=== PATIENT | male | born 1990 | race Hispanic/Latino ===

== ENCOUNTER 2018-07-21 02:13 | Emergency (ER) | payer SELFPAY ==
[2018-07-21] MEDS ORDERED: Fluorescein Opthalmic Strip ONE (03:29)
[2018-07-21] MEDS ORDERED: Proparacaine 0.5% Opth 15 ML BOT ONE (03:30)
[2018-07-21] MEDS ORDERED: traMADol HCl 50 MG TAB ONE (04:15)
[2018-07-21] MEDS ORDERED: Erythromycin Base 0.5% Oint 1 GM TUBE ONE (04:16)
== END 2018-07-21 04:37 | disposition home or self-care (01) ==
LOC: ERS 02:13
DX: T15.01XA Foreign body in cornea, right eye, initial encounter (principal); Z87.891 Personal history of nicotine dependence
CPT/HCPCS: 99283

== ENCOUNTER 2018-07-24 02:33 | Emergency (ER) | payer SELFPAY ==
[2018-07-24] MEDS ORDERED: Proparacaine 0.5% Opth 15 ML BOT ONE (02:42)
[2018-07-24] MEDS ORDERED: Fluorescein Opthalmic Strip ONE (02:42)
[2018-07-24] MEDS ORDERED: Midazolam HCl 2 mg/2 ml Vial ONE (02:57)
== END 2018-07-24 03:28 | disposition home or self-care (01) ==
LOC: ERS 02:33
DX: T15.01XA Foreign body in cornea, right eye, initial encounter (principal); F17.200 Nicotine dependence, unspecified, uncomplicated; Z79.891 Long term (current) use of opiate analgesic
CPT/HCPCS: 65222; J2250